=== PATIENT | male | born 1965 | race Caucasian/White ===

== ENCOUNTER 2017-02-14 10:30 | Emergency (ER) | payer SELFPAY ==
[~2017-02-14] VITALS: Ht 188 cm; Wt 149.0 kg
[2017-02-14 10:33] VITALS: BP 177/100; PULSE 89; RESP 16; TEMP 98.4; O2SAT 94
[2017-02-14] MEDS ORDERED: ALLO100T PO (10:44)
[2017-02-14] MEDS ORDERED: IBUP-1129 PO (10:44)
[2017-02-14] MEDS ORDERED: LISI40TA PO (10:44)
--- NOTE | 2017-02-14 11:28 | PD ---
HPI Chief Complaint: Skin Problem Time Seen by Provider: 11:10 Travel History International Travel<30 days: No Contact w/Intl Traveler<30days: No Traveled to known affect area: No History of Present Illness HPI 51 year old male here with painful rash to right torso times one day. Patient reports this is similar to shingles he had several years ago. He denies fever or chills. No aggravating or alleviating factors. Symptoms severity is moderate. PFSH Past Medical History Gout: Yes Hypertension: Yes Influenza Vaccination: No Social History Alcohol Use: No Tobacco Use: No Substance Use: No Allergies-Medications (Allergen,Severity, Reaction): Coded Allergies: No Known Allergies (Unverified , 02/14/17) Reported Meds & Prescriptions Reported Meds & Active Scripts Active Reported Motrin Ib (Ibuprofen) 200 Mg Tablet 800 Mg PO BID Lisinopril 40 Mg Tab 40 Mg PO DAILY Allopurinol 100 Mg Tab 100 Mg PO BID Review of Systems Except as stated in HPI: all other systems reviewed are Neg General / Constitutional: No: Fever Eyes: No: Visual changes HENT: No: Headaches Cardiovascular: No: Chest Pain or Discomfort Respiratory: No: Shortness of Breath Gastrointestinal: No: Abdominal Pain Genitourinary: No: Dysuria Skin: Positive Rash Physical Exam Narrative GENERAL: Alert and well-appearing male. SKIN: Vesicular rash to the right torso which does not cross the midline. HEAD: Normocephalic. EYES: No injection or drainage. NECK: Supple, trachea midline. CARDIOVASCULAR: Regular rate and rhythm without murmurs, gallops, or rubs. RESPIRATORY: Breath sounds equal bilaterally. No accessory muscle use. GASTROINTESTINAL: Abdomen soft, non-tender, nondistended. MUSCULOSKELETAL: No cyanosis, or edema. BACK: Nontender without obvious deformity. No CVA tenderness. Data Data Last Documented VS Vital Signs Date Time Temp Pulse Resp B/P (MAP) Pulse Ox O2 Delivery O2 Flow Rate FiO2 02/14/17 10:33 98.4 89 16 177/100 (125) 94 MDM Medical Decision Making Medical Screen Exam Complete: Yes Emergency Medical Condition: Yes Differential Diagnosis Herpes zoster, contact dermatitis, unspecified rash Narrative Course 51 -year-old male here with herpes zoster to the right torso. He is well- appearing. Patient will be treated with antivirals, steroids, pain medication. He is instructed to follow up with his primary doctor for recheck. Diagnosis Primary Impression: Herpes zoster Qualified Codes: B02.9 - Zoster without complications Referrals: Primary Care Physician Additional Instructions: Valtrex as prescribed. Prednisone as prescribed. Hydrocodone as prescribed. Continue to use her Lidoderm patch as needed for pain. Scripts Prednisone (Prednisone) 20 Mg Tab 40 MG PO DAILY, #10 TAB 0 Refills Take 40 mg (2 tablets) daily for 5 days Prov: Elvira Dupree 02/14/17 Valacyclovir (Valtrex) 1,000 Mg Tab 1000 MG PO TID for Mgmt Viral Infection for 7 Days, #90 TAB 0 Refills Prov: Elvira Dupree 02/14/17 Disposition: 01 DISCHARGE HOME Condition: Stable Elvira Dupree Feb 14, 2017 11:28
[2017-02-14] MEDS ORDERED: VALT1TAB PO (11:33)
[2017-02-14] MEDS ORDERED: PRED20 PO (11:33)
[2017-02-14] MEDS ORDERED: NORC5TAB PO (11:34)
== END 2017-02-14 11:43 | disposition home or self-care (01) ==
LOC: PHEFT 10:30
DX: B02.9 Zoster without complications (principal); I10 Essential (primary) hypertension; M10.9 Gout, unspecified
CPT/HCPCS: 99284